=== PATIENT | male | born 1970 | race African-American/Black ===

== ENCOUNTER 2018-06-20 15:40 | Inpatient (IN) | payer OTHER ==
[~2018-06-20] VITALS: Ht 157.5 cm; Wt 87.6 kg
[2018-06-20 16:30] LABS: BASOPHILS # (AUTO) 0.01 x10^3/uL (0-0.1); BASOPHILS % (AUTO) 0 % (0-1); EOSINOPHILS # (AUTO) 0.04 x10^3/uL (0-0.4); EOSINOPHILS % (AUTO) 0 % (1-7); LYMPHOCYTES # (AUTO) 1.37 x10^3/uL (1-3.4); LYMPHOCYTES % (AUTO) 9 % (22-44); MD NO; MEAN CORPUSCULAR HGB CONC 33.7 g/dL (33.2-36.2); MEAN CORPUSCULAR VOLUME 85.9 fL (81-97); MEAN PLATELET VOLUME 8.2 fL (7.4-10.4); MONOCYTES # (AUTO) 0.68 x10^3/uL (0.2-0.8); MONOCYTES % (AUTO) 5 % (2-9); NEUTROPHILS # (AUTO) 12.95 x10^3/uL (1.8-6.8); NEUTROPHILS % (AUTO) 86 % (42-75); PLATELET COUNT 327 x10^3/uL (130-400); RED BLOOD COUNT 5.45 x10^6/uL (4.38-5.82); RED CELL DISTRIBUTION WIDTH 14.5 % (9.4-14.8)
[2018-06-20 16:42] LABS: INTERNATIONAL NORMALIZED RATIO 1.02 (0.93-1.1); PROTHROMBIN TIME 10.6 Seconds (9.6-11.5)
[2018-06-20 16:43] LABS: ALANINE AMINOTRANSFERASE 22 U/L (12-78); ALBUMIN 3.5 g/dL (3.4-5.0); ANION GAP 8 mmol/L (5-15); CALCIUM 8.6 mg/dL (8.5-10.1); CHLORIDE 103 mmol/L (98-107)
[2018-06-20 16:48] LABS: ALKALINE PHOSPHATASE 100 U/L (45-117); BILIRUBIN,TOTAL 0.5 mg/dL (0.2-1.0); TOTAL PROTEIN 8.7 g/dL (6.4-8.2); TROPONIN I < 0.015 ng/mL (0.000-0.045)
[2018-06-20] MEDS ORDERED: SODIUM CHLORIDE 0.9% 1,000ML IVBOLUS ONE ×2 (17:00→20:00)
[2018-06-20] MEDS ORDERED: KETOROLAC 30 MG/1 ML IVPush ONE (18:00)
[2018-06-20] MEDS ORDERED: KETOROLAC 30 MG/1 ML ONE (18:01)
[2018-06-20] MEDS ORDERED: OMNIPAQUE 350 MG/ML, 100ML BOTTLE ONE (18:47)
[2018-06-20] MEDS ORDERED: AMPICILLIN/SULBACTAM 3 GM in SODIUM CHLORIDE 0.9% 100 ML IV ONE (19:30)
[2018-06-20] MEDS ORDERED: hydrALAzine 20 MG/ML, 1ML IV ONE (20:00)
[2018-06-20] MEDS ORDERED: MIDAZOLAM 1 MG/ML, 2ML ONE (20:27)
[2018-06-20] MEDS ORDERED: hydrALAzine 20 MG/ML, 1ML IVPush PRN (20:30)
[2018-06-20] MEDS ORDERED: LACTATED RINGERS 1,000 ML IV SCH (20:30)
[2018-06-20] MEDS ORDERED: morphine SULFATE 10 MG/ML, 1ML IVPush PRN (20:30)
[2018-06-20] MEDS: AMPICILLIN/SULBACTAM 1,500 MG in SODIUM CHLORIDE 0.9% 50 ML IV SCH (20:30)
[2018-06-20] MEDS ORDERED: ACETAMINOPHEN 500 MG TABLET PO PRN (20:30)
[2018-06-20] MEDS ORDERED: BUPIVACAINE 0.25% ONE (20:31)
[2018-06-20] MEDS ORDERED: FENTANYL PF 250 MCG/5ML ONE (20:59)
[2018-06-20] MEDS ORDERED: LABETALOL 5MG/ML, 20ML IVPush PRN (21:00)
[2018-06-20] MEDS ORDERED: NITROGLYCERIN 0.4 MG BOTTLE (25 TABS) SL PRN (22:00)
[2018-06-20 22:31] LABS: TROPONIN I < 0.015 ng/mL (0.000-0.045)
[2018-06-20] MEDS ORDERED: METOCLOPRAMIDE 5 MG/ML, 2ML ONE (23:23)
[2018-06-20] MEDS ORDERED: SUCCINYLCHOLINE 20 MG/ML, 10ML ONE (23:23)
[2018-06-20] MEDS ORDERED: PROPOFOL 10 MG/ML, 20ML ONE (23:23)
[2018-06-21] MEDS ORDERED: hydrALAzine 20 MG/ML, 1ML IV PRN
[2018-06-21] MEDS ORDERED: OXYcodone 5 MG/5 ML ORAL.SOL UDC PO PRN
[2018-06-21] MEDS ORDERED: HYDROmorphone 1 MG/ML, 1ML IV PRN
[2018-06-21] MEDS ORDERED: FENTANYL PF 100 MCG/2ML IV PRN
[2018-06-21] MEDS ORDERED: ALBUTEROL SULFATE 2.5 MG/3 ML NPPB PRN
[2018-06-21] MEDS ORDERED: PROMETHAZINE 25 MG/ML, 1ML IV PRN
[2018-06-21] MEDS ORDERED: METOPROLOL 1 MG/ML, 5ML IV PRN
[2018-06-21] MEDS ORDERED: BUPIVACAINE/PF 0.25% INFIL ONE (00:07)
[2018-06-21] MEDS ORDERED: OXYcodone 5 MG/5 ML ORAL.SOL UDC ONE (00:09)
[2018-06-21] MEDS ORDERED: FENTANYL PF 100 MCG/2ML ONE (00:09)
[2018-06-21] MEDS ORDERED: ACETAMINOPHEN 650 MG/20.3 ML UDC ONE (00:09)
[2018-06-21] MEDS ORDERED: METOPROLOL 1 MG/ML, 5ML ONE (00:25)
[2018-06-21] MEDS ORDERED: METOPROLOL 1 MG/ML, 5ML IV ONE (00:30)
[2018-06-21 01:32] VITALS: BP 141/92
[2018-06-21] MEDS: AMPICILLIN/SULBACTAM 1,500 MG in SODIUM CHLORIDE 0.9% 50 ML IV SCH ×2 (02:50→08:39)
[2018-06-21 04:18] LABS: AMPHETAMINE SCREEN, URINE Positive (Negative); BARBITURATE SCREEN, URINE Negative (Negative); BENZODIAZEPINE SCREEN, URINE Negative (Negative); CANNABINOID SCREEN, URINE Positive (Negative); COCAINE SCREEN, URINE Negative (Negative); OPIATE SCREEN, URINE Negative (Negative)
[2018-06-21 04:19] LABS: METHADONE SCREEN, URINE Negative (Negative)
[2018-06-21 04:27] LABS: CULTURE INDICATED? NO; MICROSCOPIC INDICATED
[2018-06-21 04:40] LABS: BASOPHILS # (AUTO) 0.02 x10^3/uL (0-0.1); BASOPHILS % (AUTO) 0 % (0-1); EOSINOPHILS % (AUTO) 0 % (1-7); LYMPHOCYTES # (AUTO) 0.85 x10^3/uL (1-3.4); LYMPHOCYTES % (AUTO) 6 % (22-44); MD NO; MEAN CORPUSCULAR HEMOGLOBIN 29.1 pg (27.5-34.5); MEAN CORPUSCULAR HGB CONC 33.8 g/dL (33.2-36.2); MEAN CORPUSCULAR VOLUME 86.3 fL (81-97); MEAN PLATELET VOLUME 8.4 fL (7.4-10.4); MONOCYTES # (AUTO) 0.21 x10^3/uL (0.2-0.8); MONOCYTES % (AUTO) 1 % (2-9); NEUTROPHILS # (AUTO) 13.71 x10^3/uL (1.8-6.8); NEUTROPHILS % (AUTO) 93 % (42-75); PLATELET COUNT 305 x10^3/uL (130-400); RED BLOOD COUNT 4.83 x10^6/uL (4.38-5.82); RED CELL DISTRIBUTION WIDTH 14.6 % (9.4-14.8)
[2018-06-21 04:56] LABS: CHLORIDE 106 mmol/L (98-107)
[2018-06-21 05:07] LABS: ALANINE AMINOTRANSFERASE 23 U/L (12-78); ALBUMIN 2.8 g/dL (3.4-5.0); ALKALINE PHOSPHATASE 86 U/L (45-117); ANION GAP 9 mmol/L (5-15); BILIRUBIN,TOTAL 0.5 mg/dL (0.2-1.0); CALCIUM 7.9 mg/dL (8.5-10.1); CREATININE 0.88 mg/dL (0.7-1.3); TOTAL PROTEIN 7.3 g/dL (6.4-8.2); TROPONIN I < 0.015 ng/mL (0.000-0.045)
[2018-06-21 07:19] VITALS: BP 138/91
[2018-06-21] MEDS: POLYETHYLENE GLYCOL 17 GM PACKET PO SCH (08:39)
[2018-06-21] MEDS: ENOXAPARIN 40 MG/0.4 ML SQ SCH (08:39)
[2018-06-21 11:13] VITALS: BP 143/97
[2018-06-21 12:47] VITALS: BP 148/87
[2018-06-21] MEDS ORDERED: HYDROcodone/APAP 5/325 TABLET PO PRN (13:30)
[2018-06-21] MEDS ORDERED: ACETAMINOPHEN 325 MG TABLET PO PRN ×2 (13:30)
[2018-06-21] MEDS: AMPICILLIN/SULBACTAM 3 GM in SODIUM CHLORIDE 0.9% 100 ML IV SCH ×2 (15:10→20:20)
[2018-06-21 20:04] VITALS: BP 131/73
[2018-06-22] MEDS: AMPICILLIN/SULBACTAM 3 GM in SODIUM CHLORIDE 0.9% 100 ML IV SCH ×4 (02:34→21:06)
[2018-06-22 02:38] VITALS: BP 132/82
[2018-06-22 05:46] LABS: MEAN CORPUSCULAR HEMOGLOBIN 29.2 pg (27.5-34.5); MEAN CORPUSCULAR VOLUME 85.9 fL (81-97); MEAN PLATELET VOLUME 8.3 fL (7.4-10.4); PLATELET COUNT 319 x10^3/uL (130-400); RED BLOOD COUNT 4.51 x10^6/uL (4.38-5.82); RED CELL DISTRIBUTION WIDTH 14.3 % (9.4-14.8)
[2018-06-22 05:58] LABS: CHLORIDE 106 mmol/L (98-107)
[2018-06-22 06:13] LABS: ANION GAP 10 mmol/L (5-15); CALCIUM 8.3 mg/dL (8.5-10.1); CREATININE 0.77 mg/dL (0.7-1.3); T4 (THYROXINE) 9.1 mcg/dL (4.5-12.1)
[2018-06-22 06:20] LABS: BASOPHILS # (AUTO) 0.05 x10^3/uL (0-0.1); BASOPHILS % (AUTO) 0 % (0-1); EOSINOPHILS # (AUTO) 0.03 x10^3/uL (0-0.4); EOSINOPHILS % (AUTO) 0 % (1-7); LYMPHOCYTES # (AUTO) 2.44 x10^3/uL (1-3.4); LYMPHOCYTES % (AUTO) 23 % (22-44); MD SCAN; MONOCYTES # (AUTO) 0.68 x10^3/uL (0.2-0.8); MONOCYTES % (AUTO) 7 % (2-9); NEUTROPHILS # (AUTO) 7.26 x10^3/uL (1.8-6.8); NEUTROPHILS % (AUTO) 70 % (42-75)
[2018-06-22 07:35] VITALS: BP 147/64
[2018-06-22] MEDS: POLYETHYLENE GLYCOL 17 GM PACKET PO SCH (09:55)
[2018-06-22] MEDS: ENOXAPARIN 40 MG/0.4 ML SQ SCH (09:55)
[2018-06-22 12:56] VITALS: BP 150/89
[2018-06-22 20:09] VITALS: BP 155/91
[2018-06-23 00:57] VITALS: BP 151/92
[2018-06-23] MEDS: AMPICILLIN/SULBACTAM 3 GM in SODIUM CHLORIDE 0.9% 100 ML IV SCH ×2 (02:59→09:26)
[2018-06-23 07:00] VITALS: BP 171/115
[2018-06-23] MEDS ORDERED: ASPIRIN 81 MG TABLET EC PO SCH (07:30)
[2018-06-23] MEDS ORDERED: METOPROLOL SUCCINATE 25 MG TAB.ER.24H PO SCH (07:30)
[2018-06-23] MEDS: ENOXAPARIN 40 MG/0.4 ML SQ SCH (07:38)
[2018-06-23] MEDS: POLYETHYLENE GLYCOL 17 GM PACKET PO SCH (07:39)
[2018-06-23 09:29] VITALS: BP 149/86
== END 2018-06-23 14:00 | disposition left against medical advice (07) | DRG 872 ==
LOC: ED 17:46 → SUATTDRO 20:07 → EDIP 20:10 → 4NOR 06-21 01:26 → 5SO 06-21 04:02 → 4EST 06-21 11:05
PROVIDERS: ADMIT Hospitalist; ATTEND Hospitalist
PROC: 0V9500Z Drainage of Scrotum with Drainage Device, Open Approach (ICD-10-PCS; principal; 2018-06-21)
DX: A41.9 Sepsis, unspecified organism (principal); F17.210 Nicotine dependence, cigarettes, uncomplicated; I10 Essential (primary) hypertension; I34.0 Nonrheumatic mitral (valve) insufficiency; I86.1 Scrotal varices; N49.2 Inflammatory disorders of scrotum; Z53.21 Procedure and treatment not carried out due to patient leaving prior to being seen by health care provider; E04.9 Nontoxic goiter, unspecified; F19.10 Other psychoactive substance abuse, uncomplicated
CPT/HCPCS: 36415; 71045; 71275; 74177; 76870; 80048; 80053; 80307; 81001; 83605; 83735; 83880; 84100; 84145; 84436; 84443; 84484; 85025; 85379; 85610; 85730; 87040; 87070; 87075; 87205; 93005; 93306; 93975; 96361; 96374; G0378; J0295; J1650; J1885; J2250; J2704; J3010; J3490; Q9967; J0330; J2765; J7030; J7120

== ENCOUNTER 2018-06-24 12:04 | Emergency (ER) | payer SELFPAY ==
[~2018-06-24] VITALS: Ht 157.5 cm; Wt 85.8 kg
[2018-06-24 12:10] VITALS: BP 139/93
[2018-06-24] MEDS ORDERED: HYDROcodone/APAP 5/325 TABLET ONE (13:09)
[2018-06-24 13:10] LABS: BASOPHILS # (AUTO) 0.04 x10^3/uL (0-0.1); BASOPHILS % (AUTO) 1 % (0-1); EOSINOPHILS # (AUTO) 0.17 x10^3/uL (0-0.4); EOSINOPHILS % (AUTO) 2 % (1-7); LYMPHOCYTES # (AUTO) 2.29 x10^3/uL (1-3.4); LYMPHOCYTES % (AUTO) 30 % (22-44); MD NO; MEAN CORPUSCULAR HEMOGLOBIN 29.1 pg (27.5-34.5); MEAN CORPUSCULAR HGB CONC 33.5 g/dL (33.2-36.2); MEAN CORPUSCULAR VOLUME 86.9 fL (81-97); MEAN PLATELET VOLUME 7.7 fL (7.4-10.4); MONOCYTES # (AUTO) 0.53 x10^3/uL (0.2-0.8); MONOCYTES % (AUTO) 7 % (2-9); NEUTROPHILS # (AUTO) 4.63 x10^3/uL (1.8-6.8); NEUTROPHILS % (AUTO) 61 % (42-75); PLATELET COUNT 411 x10^3/uL (130-400); RED BLOOD COUNT 5.47 x10^6/uL (4.38-5.82); RED CELL DISTRIBUTION WIDTH 14.4 % (9.4-14.8)
[2018-06-24 13:19] LABS: ANION GAP 6 mmol/L (5-15); CALCIUM 8.9 mg/dL (8.5-10.1); CHLORIDE 108 mmol/L (98-107); CREATININE 0.97 mg/dL (0.7-1.3)
[2018-06-24] MEDS ORDERED: HYDROcodone/APAP 5/325 TABLET PO ONE (13:30)
== END 2018-06-24 14:49 ==
LOC: ED 13:02
DX: N49.2 Inflammatory disorders of scrotum (principal); F11.10 Opioid abuse, uncomplicated; F10.10 Alcohol abuse, uncomplicated; Z72.9 Problem related to lifestyle, unspecified
CPT/HCPCS: 36415; 80048; 85025; 99284